=== PATIENT | male | born 1960 | race Caucasian/White ===

== ENCOUNTER 2020-01-03 11:29 | Emergency (ER) | payer BC ==
--- NOTE | 2020-01-03 12:36 | RAD ---
EXAM: CHEST ONE VIEW HISTORY: Covid positive. COMPARISON: 12/12/2012 FINDINGS: Cardiac silhouette is magnified by projection but is stable when compared to prior exam. Pulmonary va sculature is within normal limits. There is mild increased density at the left lung base, but this was also seen on prior study in may represent an epicardial fat pad. Lungs otherwise appear clear. De generative changes are present spine. No other interval change IMPRESSION: 1. No acute cardiopulmonary process. Chest radiographs exhibit low sensitivity for evaluation of subt le groundglass opacities which can be seen with viral pneumonitis.
[2020-01-03 13:01] LABS: #Lymphocytes 0.8 thou/uL (1.20-3.40); #Monocytes 0.5 thou/uL (0.11-0.59); #Neutrophils 3.4 thou/uL (1.40-6.50); %Basophils 0.1 % (0.0-1.0); %Eosinophils 0.1 % (0.0-10.0); %Lymphocytes 16.7 % (21.0-51.0); %Monocytes 11.2 % (0.0-10.0); %Neutrophils 71.9 % (42.0-75.0); Hemoglobin 17.3 g/dL (14.0-18.0); Mean Corpuscular HGB CONC 33.8 g/dL (32.0-36.0); Mean Corpuscular Hemoglobin 30.6 pg (27.0-31.0); Mean Corpuscular Volume 90.6 fL (78.0-98.0); Mean Platelet Volume 7.6 fL (7.4-10.4); Platelet Count 173 thou/uL (130-400); RBC Distribution Width 12.4 % (11.5-14.5); Red Blood Cell (RBC) Count 5.64 mill/uL (4.70-6.10); White Blood Cell (WBC) Count 4.8 thou/uL (4.8-10.8)
[2020-01-03 13:09] LABS: Prothrombin Time 13.7 sec (12.0-14.7)
[2020-01-03 13:18] LABS: ALT (SGPT) 17 U/L (8-55); AST (SGOT) 18 U/L (5-34); Albumin 4.1 g/dL (3.4-4.8); Alkaline Phosphatase 29 U/L (40-110); Anion Gap 17 mmol/L (10-20); BUN (Urea Nitrogen) 20 mg/dL (8.4-25.7); Bilirubin, Total 0.4 mg/dL (0.2-1.2); Calc. Creatinine Clearance 0 mL/min (70-130); Calcium 8.9 mg/dL (7.8-10.44); Carbon Dioxide 21 mmol/L (23-31); Chloride 102 mmol/L (98-107); Estimated GFR-MDRD 67; Globulin 3.4 g/dL (2.4-3.5); Glucose 102 mg/dL (80-115); Potassium 4.1 mmol/L (3.5-5.1); Protein, Total 7.5 g/dL (5.8-8.1); Sodium 136 mmol/L (136-145)
== END 2020-01-03 13:45 | disposition home or self-care (01) ==
LOC: ERS 11:29
DX: U07.1 COVID-19 (principal); I10 Essential (primary) hypertension; Z79.899 Other long term (current) drug therapy
CPT/HCPCS: 36415; 71045; 80053; 83605; 85025; 85610; 85652; 85730; 86140; 94760

== ENCOUNTER 2023-03-18 14:29 | Emergency (ER) | payer BC ==
[2023-03-18] MEDS ORDERED: Lidocaine 1% PF 5 ML VIAL ONE (16:18)
[2023-03-18] MEDS ORDERED: HYDROcodone/Acetaminophen 10/325 mg Tablet ONE (16:21)
[2023-03-18] MEDS ORDERED: Bacitracin 1 PK ONE (16:55)
[2023-03-18] MEDS ORDERED: Boostrix 0.5 ML (Tdap) VIAL (>/=7 yrs of age) ONE (16:58)
== END 2023-03-18 18:01 | disposition home or self-care (01) ==
LOC: ERS 14:29
DX: S62.621A Displaced fracture of middle phalanx of left index finger, initial encounter for closed fracture (principal); S62.613A Displaced fracture of proximal phalanx of left middle finger, initial encounter for closed fracture; S62.307A Unspecified fracture of fifth metacarpal bone, left hand, initial encounter for closed fracture; S61.211A Laceration without foreign body of left index finger without damage to nail, initial encounter; I10 Essential (primary) hypertension; X50.9XXA Other and unspecified overexertion or strenuous movements or postures, initial encounter; Z23 Encounter for immunization; Z79.899 Other long term (current) drug therapy
CPT/HCPCS: 12002; 29105; 90471; 90715